=== PATIENT | male | born 1990 | race Hispanic/Latino ===

== ENCOUNTER 2019-11-13 19:50 | Emergency (ER) | payer BC, OTHER | END 2019-11-13 21:49 | LOC: EDH 19:50 | DX: I86.1 Scrotal varices (principal) ==

== ENCOUNTER → 2020-08-20 | Outpatient (CLI) | payer OTHER | END | disposition home or self-care (01) | LOC: RAH 09:52 | PROVIDERS: ATTEND Physical Medicine & Rehabilitation | DX: M54.6 Pain in thoracic spine (principal); M54.5 Low back pain; M41.84 Other forms of scoliosis, thoracic region | CPT/HCPCS: 72070; 72082; 72114 ==